=== PATIENT | female | born 1945 | race Caucasian/White ===

== ENCOUNTER → 2023-11-18 08:32 | Outpatient (REF) | payer OTHER, SELFPAY ==
[2023-11-18 09:03] VITALS: BP 140/66; BP_SYST 61
[2023-11-18] MEDS: VANCOCIN 200 IV (09:46)
[2023-11-18 11:10] VITALS: BP 140/52
== END ==
LOC: RADI 08:32
PROVIDERS: ATTENDING PHYSICIAN Internal Medicine Hematology & Oncology; FAMILY PHYSICIAN Family Medicine
DX: C50.211 Malignant neoplasm of upper-inner quadrant of right female breast (principal)
CPT/HCPCS: 36561; 76937; 77001; 99152; 99153; C1788

== ENCOUNTER → 2023-11-24 11:16 | Outpatient (REF) | payer OTHER, SELFPAY ==
[2023-11-24 11:46] LABS: % Basophils 0.4 % (0-2); % Eosinophils 2.4 % (0-6); % Immature Granulocytes 0.2 % (0-0.5); % Lymphocytes 22.1 % (20.5-51.1); % Monocytes 7.5 % (1.7-9.3); % Neutrophils 67.4 % (42.2-75.2); Absolute Eosinophils 0.2 10^3/uL (0-0.7); Absolute Monocytes 0.7 10^3/uL (0.1-0.6); Absolute Neutrophils 6.1 10^3/uL (1.4-6.5); Hematocrit 37.6 % (37.0-47.0); Hemoglobin 12.5 g/dL (12.0-16.0); Mean Corp Hgb Conc. 33.2 g/dL (33.0-37.0); Mean Corpuscular Hgb 28.5 pg (27.0-31.0); Mean Corpuscular Volume 85.8 fL (81.0-99.0); Mean Platelet Volume 10.1 fL (7.4-10.4); Nucleated Red Blood Cells % 0 %; Platelet Count 170 10^3/uL (130-400); Red Blood Cell Count 4.38 10^6/uL (4.20-5.40); Red Cell Dist. Width 13.4 % (11.5-14.5); White Blood Cell Count 9.1 10^3/uL (4.8-10.8)
[2023-11-24 12:02] LABS: ALT (SGPT) 19 U/L (0-35); AST (SGOT) 29 U/L (14-36); Albumin 3.9 g/dl (3.5-5.0); Alkaline Phosphatase 119 U/L (38-126); Blood Urea Nitrogen 16 mg/dl (7-17); Calcium 10.3 mg/dl (8.4-10.2); Carbon Dioxide 32 mmol/L (22-30); Chloride 101 mmol/L (98-107); Glucose 117 mg/dl (70-99); Potassium 3.4 mmol/L (3.5-5.1); Sodium 138 mmol/L (135-145); Total Protein 6.7 g/dl (6.3-8.2); eGFR > 60.00
== END ==
LOC: REG 11:16
PROVIDERS: ATTENDING PHYSICIAN Internal Medicine Hematology & Oncology; FAMILY PHYSICIAN Family Medicine
DX: C50.211 Malignant neoplasm of upper-inner quadrant of right female breast (principal); C34.2 Malignant neoplasm of middle lobe, bronchus or lung; D37.8 Neoplasm of uncertain behavior of other specified digestive organs; C78.02 Secondary malignant neoplasm of left lung; C78.01 Secondary malignant neoplasm of right lung; C25.1 Malignant neoplasm of body of pancreas
CPT/HCPCS: 36415; 80053; 85025

== ENCOUNTER → 2023-12-19 14:42 | Outpatient (REF) | payer OTHER, SELFPAY ==
[2023-12-19 09:01] LABS: % Basophils 0.6 % (0-2); % Immature Granulocytes 0.3 % (0-0.5); % Lymphocytes 20.2 % (20.5-51.1); % Monocytes 2.1 % (1.7-9.3); % Neutrophils 76.8 % (42.2-75.2); Absolute Lymphocytes 0.7 10^3/uL (1.2-3.4); Absolute Monocytes 0.1 10^3/uL (0.1-0.6); Absolute Neutrophils 2.5 10^3/uL (1.4-6.5); Hematocrit 28.5 % (37.0-47.0); Hemoglobin 9.9 g/dL (12.0-16.0); Mean Corp Hgb Conc. 34.7 g/dL (33.0-37.0); Mean Corpuscular Hgb 28.8 pg (27.0-31.0); Mean Corpuscular Volume 82.8 fL (81.0-99.0); Mean Platelet Volume 11.1 fL (7.4-10.4); Nucleated Red Blood Cells % 0 %; Platelet Count 122 10^3/uL (130-400); Red Blood Cell Count 3.44 10^6/uL (4.20-5.40); Red Cell Dist. Width 14.2 % (11.5-14.5); White Blood Cell Count 3.3 10^3/uL (4.8-10.8)
== END ==
LOC: OIDL 14:42
PROVIDERS: ATTENDING PHYSICIAN Internal Medicine Hematology & Oncology
DX: C50.211 Malignant neoplasm of upper-inner quadrant of right female breast (principal); C34.2 Malignant neoplasm of middle lobe, bronchus or lung
CPT/HCPCS: 85025

== ENCOUNTER → 2024-01-09 15:47 | Outpatient (REF) | payer OTHER, SELFPAY ==
[2024-01-09 10:13] LABS: Hematocrit 27.2 % (37.0-47.0); Hemoglobin 9.1 g/dL (12.0-16.0); Mean Corp Hgb Conc. 33.5 g/dL (33.0-37.0); Mean Corpuscular Hgb 29.3 pg (27.0-31.0); Mean Corpuscular Volume 87.5 fL (81.0-99.0); Mean Platelet Volume 9.7 fL (7.4-10.4); Platelet Count 179 10^3/uL (130-400); Red Blood Cell Count 3.11 10^6/uL (4.20-5.40); Red Cell Dist. Width 17.6 % (11.5-14.5); White Blood Cell Count 2.4 10^3/uL (4.8-10.8)
[2024-01-09 10:32] LABS: ALT (SGPT) 42 U/L (0-35); AST (SGOT) 42 U/L (14-36); Albumin 3.5 g/dl (3.5-5.0); Alkaline Phosphatase 109 U/L (38-126); Blood Urea Nitrogen 12 mg/dl (7-17); Calcium 9.8 mg/dl (8.4-10.2); Carbon Dioxide 30 mmol/L (22-30); Chloride 101 mmol/L (98-107); Glucose 130 mg/dl (70-99); Potassium 2.8 mmol/L (3.5-5.1); Sodium 136 mmol/L (135-145); Total Bilirubin 1.4 mg/dl (0.2-1.3); Total Protein 5.8 g/dl (6.3-8.2); eGFR > 60.00
[2024-01-09 10:51] LABS: Absolute Neutrophils -Man Diff 0.8 10^3/uL (1.4-6.5); Band Neutrophils 1 % (0-3); Lymphocytes 41 % (20-51); Segmented Neutrophils 35 % (42-75)
[2024-01-09 10:52] LABS: Eosinophils 5 % (0-6); Monocytes 18 % (2-9); Normal RBC Morphology Yes; Platelets Checked Yes; Total Cells Counted 100
== END ==
LOC: OIDL 15:47
PROVIDERS: ATTENDING PHYSICIAN Internal Medicine Hematology & Oncology
DX: C50.211 Malignant neoplasm of upper-inner quadrant of right female breast (principal)
CPT/HCPCS: 80053; 85025

== ENCOUNTER → 2024-01-16 09:19 | Outpatient (REF) | payer OTHER, SELFPAY ==
[2024-01-16 09:39] LABS: % Basophils 1.1 % (0-2); % Eosinophils 1.1 % (0-6); % Immature Granulocytes 1.1 % (0-0.5); % Lymphocytes 24.2 % (20.5-51.1); % Monocytes 7.3 % (1.7-9.3); % Neutrophils 65.2 % (42.2-75.2); Absolute Lymphocytes 0.7 10^3/uL (1.2-3.4); Absolute Monocytes 0.2 10^3/uL (0.1-0.6); Absolute Neutrophils 1.8 10^3/uL (1.4-6.5); Hematocrit 26.3 % (37.0-47.0); Hemoglobin 8.7 g/dL (12.0-16.0); Mean Corp Hgb Conc. 33.1 g/dL (33.0-37.0); Mean Corpuscular Hgb 28.9 pg (27.0-31.0); Mean Corpuscular Volume 87.4 fL (81.0-99.0); Mean Platelet Volume 10.6 fL (7.4-10.4); Nucleated Red Blood Cells % 0 %; Platelet Count 128 10^3/uL (130-400); Red Blood Cell Count 3.01 10^6/uL (4.20-5.40); Red Cell Dist. Width 16.9 % (11.5-14.5); White Blood Cell Count 2.7 10^3/uL (4.8-10.8)
[2024-01-16 09:54] LABS: ALT (SGPT) 44 U/L (0-35); AST (SGOT) 37 U/L (14-36); Albumin 3.3 g/dl (3.5-5.0); Alkaline Phosphatase 104 U/L (38-126); Blood Urea Nitrogen 9 mg/dl (7-17); Calcium 9.9 mg/dl (8.4-10.2); Carbon Dioxide 31 mmol/L (22-30); Chloride 99 mmol/L (98-107); Glucose 118 mg/dl (70-99); Potassium 3.1 mmol/L (3.5-5.1); Sodium 134 mmol/L (135-145); Total Bilirubin 1.4 mg/dl (0.2-1.3); Total Protein 5.6 g/dl (6.3-8.2); eGFR > 60.00
[2024-01-19 10:39] LABS: Iron 51 ug/dl (37-170)
[2024-01-19 10:51] LABS: Percent Saturation 21 % (20-50); Total Iron Binding Capacity 232 ug/dl (265-497)
== END ==
LOC: OIDL 09:19
PROVIDERS: ATTENDING PHYSICIAN Nurse Practitioner Adult Health
DX: C50.211 Malignant neoplasm of upper-inner quadrant of right female breast (principal); C34.2 Malignant neoplasm of middle lobe, bronchus or lung; D37.8 Neoplasm of uncertain behavior of other specified digestive organs; C78.02 Secondary malignant neoplasm of left lung
CPT/HCPCS: 80053; 82728; 83540; 83550; 85025

== ENCOUNTER → 2024-01-23 15:36 | Outpatient (REF) | payer OTHER, SELFPAY ==
[2024-01-23 11:07] LABS: ALT (SGPT) 93 U/L (0-35); AST (SGOT) 88 U/L (14-36); Albumin 3.3 g/dl (3.5-5.0); Alkaline Phosphatase 393 U/L (38-126); Blood Urea Nitrogen 9 mg/dl (7-17); Calcium 9.7 mg/dl (8.4-10.2); Carbon Dioxide 31 mmol/L (22-30); Chloride 95 mmol/L (98-107); Glucose 127 mg/dl (70-99); Potassium 2.8 mmol/L (3.5-5.1); Sodium 133 mmol/L (135-145); Total Bilirubin 2.1 mg/dl (0.2-1.3); Total Protein 5.7 g/dl (6.3-8.2); eGFR > 60.00
[2024-01-23 11:09] LABS: % Basophils 1.4 % (0-2); % Eosinophils 0.2 % (0-6); % Immature Granulocytes 6.7 % (0-0.5); % Lymphocytes 19.5 % (20.5-51.1); % Monocytes 11.8 % (1.7-9.3); % Neutrophils 60.4 % (42.2-75.2); Absolute Basophils 0.1 10^3/uL (0-0.2); Absolute Immature Granulocytes 0.3 10^3/uL (0-0.05); Absolute Lymphocytes 0.8 10^3/uL (1.2-3.4); Absolute Monocytes 0.5 10^3/uL (0.1-0.6); Absolute Neutrophils 2.5 10^3/uL (1.4-6.5); Hemoglobin 8.6 g/dL (12.0-16.0); Mean Corp Hgb Conc. 34.4 g/dL (33.0-37.0); Mean Corpuscular Hgb 29.7 pg (27.0-31.0); Mean Corpuscular Volume 86.2 fL (81.0-99.0); Nucleated Red Blood Cells % 2.2 %; Red Cell Dist. Width 16.8 % (11.5-14.5); White Blood Cell Count 4.2 10^3/uL (4.8-10.8)
[2024-01-23 11:49] LABS: Mean Platelet Volume 10.9 fL (7.4-10.4); Platelet Count 86 10^3/uL (130-400)
== END ==
LOC: OIDL 15:36
PROVIDERS: ATTENDING PHYSICIAN Internal Medicine Hematology & Oncology
DX: C50.211 Malignant neoplasm of upper-inner quadrant of right female breast (principal)
CPT/HCPCS: 80053; 85025

== ENCOUNTER → 2024-02-03 14:31 | Outpatient (REF) | payer OTHER, SELFPAY | LOC: RAD 14:31 | PROVIDERS: ATTENDING PHYSICIAN Internal Medicine Hematology & Oncology; FAMILY PHYSICIAN Family Medicine | DX: C50.211 Malignant neoplasm of upper-inner quadrant of right female breast (principal); C34.2 Malignant neoplasm of middle lobe, bronchus or lung; D37.8 Neoplasm of uncertain behavior of other specified digestive organs; C78.02 Secondary malignant neoplasm of left lung; C78.01 Secondary malignant neoplasm of right lung; C25.1 Malignant neoplasm of body of pancreas | CPT/HCPCS: 93970 ==

== ENCOUNTER → 2024-02-08 13:26 | Outpatient (REF) | payer OTHER, SELFPAY | LOC: RAD 13:26 | PROVIDERS: ATTENDING PHYSICIAN Internal Medicine Hematology & Oncology; FAMILY PHYSICIAN Family Medicine | DX: C50.211 Malignant neoplasm of upper-inner quadrant of right female breast (principal); C34.2 Malignant neoplasm of middle lobe, bronchus or lung; D37.8 Neoplasm of uncertain behavior of other specified digestive organs; C78.02 Secondary malignant neoplasm of left lung; C78.01 Secondary malignant neoplasm of right lung; C25.1 Malignant neoplasm of body of pancreas | CPT/HCPCS: 71260; 74177; Q9967 ==

== ENCOUNTER → 2024-02-16 12:53 | Outpatient (REF) | payer OTHER, SELFPAY | LOC: RAD 12:53 | PROVIDERS: ATTENDING PHYSICIAN Internal Medicine Hematology & Oncology; FAMILY PHYSICIAN Family Medicine; OTHER PHYSICIAN Internal Medicine Critical Care Medicine; OTHER PHYSICIAN Podiatrist Foot & Ankle Surgery | DX: C50.211 Malignant neoplasm of upper-inner quadrant of right female breast (principal); C34.2 Malignant neoplasm of middle lobe, bronchus or lung; D37.8 Neoplasm of uncertain behavior of other specified digestive organs; C78.02 Secondary malignant neoplasm of left lung; C78.01 Secondary malignant neoplasm of right lung; C25.1 Malignant neoplasm of body of pancreas; M79.606 Pain in leg, unspecified | CPT/HCPCS: 93971 ==

== ENCOUNTER 2024-03-28 17:14 | Inpatient (IN) | payer OTHER, SELFPAY ==
[2024-03-28] VITALS (9 sets, daily range): BP systolic 131–163; BP diastolic 61–93; BMI 26.3
--- NOTE | 2024-03-28 11:12 | ED.GENMED ---
History of Present Illness
General
Chief Complaint: Fall
Source: patient and ambulance crew
Exam Limitations: none
Time Seen by Provider: 03/28/24 10:44
Nursing documentation reviewed up to this point in time: agreed with
Travel History
Have you had any contact with someone who has COVID-19?: No
Do you have any symptoms of coronavirus? Fever > 100 degrees, chills, cough, shortness of breath, sore throat, loss of taste or smell, muscle aches, or headache?: No
History of Present Illness
History of Present Illness:
Patient presents to ED secondary to left ankle pain with swelling, when she lost balance and fell down at home this morning. Patient who has been utilizing walker secondary to lower extremity weakness from deconditioning, reports losing balance and
falling to her right side. Patient recalls hitting the door with lesser body and then subsequently falling backwards. Patient denies loss of consciousness. Denies head injury. Denies neck pain. Denies loss of sensation or weakness. Patient
does take Eliquis chronically.
Past History
Past History
ED Past Medical History: HTN and Hypercholesterolemia
ED Past Surgical History: Gynecological (History of a D&C)
Social History
Personal:
Living: with family
Employment: Employed
Review of Systems
Review of Systems
Allergies reviewed?: Yes
All Other Systems: ROS reviewed and negative except as documented in HPI and ROS
Constitutional: Reports no symptoms
Musculoskeletal: Reports other (Ankle pain with swelling)
Skin: Reports no symptoms
Neurological: Reports no symptoms
Phy Exam
Physical Exam
Physical Exam:
Physical Exam
General: mild painful distress, not acutely ill. afebrile
Head: nc/at. eomi
Neck: supple. normal range of motion
Lungs: cta. chest wall nontender to palpation.
Abdomen: normal bowel sounds. not tender.
Neuro: alert and oriented. no focal neurological deficits
Skin: no rash
Psychiatric: well kept. interactive and cooperative
Extremities: left ankle - lateral malleolus tenderness with ecchymosis and swelling. no obvious deformity noted.
Course
Orders/Labs/Results
Orders:
Orders
03/28/24 11:11
Acetaminophen [Tylenol] 650 mg PO NOW STA
CR Ankle - Left Min 3 Views Urgent
Comment:
Reason For Exam: trauma with lateral swelling
03/28/24 13:41
Electrocardiogram (*1) Urgent
Reason for Study: PreOp
EKG- Treatment ONCE
03/28/24 13:43
IV Insert/Care/Rem.- Treatment PRN
03/28/24 13:56
Type+Screen Urgent
Basic Metabolic Panel Urgent
Complete Blood Count/No Diff Urgent
Magnesium Urgent
PTT Urgent
Prothrombin Time Urgent
03/28/24 15:16
Magnesium Sulfate 4 Gram/100Ml [Magnesium Sulfate] 4 gram in 100 ml IV NOW
03/28/24 15:23
Magnesium Sulfate 1 grams 0.9% Sodium Chloride 100 ml [Nss] 100 ml IV NOW
Potassium Chloride [KCl] 40 meq PO NOW STA
03/28/24 16:40
Admit/Transfer Patient As Directed
Co-Sign Provider:
Level of Care: Inpatient admission
Assign to:: Medical/Surgical
Physician / Group: Hospitalist
Transfer to: Medical/Surgical
Diagnosis: Ankle fracture
Patient Condition: Fair
Reason for Hospitalization: Ankle fracture
Expected length of stay greater than two midnights?: Yes
ELOS- Estimated Length of Stay in days: 4
I certify the patient meets the requirements for IP care: Yes
Reason for Overnight Stay: Other
Other Reason for Overnight Stay: Potential surgery
03/28/24 16:45
ORTHOPEDIC CONSULT Routine
Consulting Provider: Jose Mccormick
Was physician already notified: Yes
Reason for consult: Ankle fracture
03/28/24 16:51
Code Status As Directed
Resuscitation Status: Full Code
Reached after discussion with pt or family/Healthcare POA: Yes
03/28/24 19:29
cyclosporine [Cequa] See Dose Instructions BOTH EYES Q12H
03/28/24 20:00
loteprednol etabonate [Inveltys] See Dose Instructions BOTH EYES BID
03/28/24 22:00
Artificial Tears (Pf) [Refresh Eye Drops (Pf)] 1 drops BOTH EYES 5/D
Diphenhydramine [Benadryl] 50 mg PO HS
03/29/24 06:00
B12 [Vitamin B12] IN AM
CBC/With Diff [Complete Blood Count/With Diff] IN AM
CMP [Comprehensive Metabolic Panel] IN AM
Folate IN AM
Magnesium IN AM
TSH Reflex To Free T4 IN AM
03/29/24 08:00
Atorvastatin [Lipitor] 10 mg PO DAILY
Cholecalciferol (Vitamin D3) [VITAMIN D3 (cholecalciferol)] 25 mcg PO DAILY
Docusate Sodium [Colace] 100 mg PO DAILY
Hydrochlorothiazide [Oretic] 25 mg PO DAILY
Potassium Chloride [KCl] 20 meq PO DAILY
Abnormal Lab Results
03/28/24
13:56
RBC 4.03 L 10^6/uL
(4.20-5.40)
Hct 35.6 L %
(37.0-47.0)
PT 15.4 H Sec
(11.4-14.6)
Potassium 2.9 L mmol/L
(3.5-5.1)
Glucose 120 H mg/dl
(70-99)
Calcium 10.7 H mg/dl
(8.4-10.2)
Magnesium 0.9 L* mg/dl
(1.6-2.3)
03/28/24 13:56
03/28/24 13:56
Vital Signs
Initial and Last Documented VS:
Initial Vital Signs
Temp Pulse Resp BP Pulse Ox
97.9 F 95 17 146/73 98
03/28/24 10:48 03/28/24 10:48 03/28/24 10:48 03/28/24 10:48 03/28/24 10:48
Last Documented Vital Signs
Temp Pulse Resp BP Pulse Ox
97.6 F 97 20 163/93 97
03/28/24 20:01 03/28/24 20:01 03/28/24 20:01 03/28/24 20:01 03/28/24 20:01
MDM/Problems Addressed
MDM/Problems Addressed:
X-ray reveals bimalleolar fracture. Posterior splint applied in ED.
Discussed with orthopaedic surgery () - tentative plan for OR tomorrow.
Will admit to hospitalist service, due to complex medical history.
Hypomagnesemia and hypokalemia noted on blood work. Will replete.
*EKG
Interpreted by ED Provider?: Yes
EKG Intrepretation Date: 03/28/24
Heart Rate: 84
Rate: normal
Rhythm: sinus
Adrian: normal axis
Interval: normal interval
QRS Pattern: normal QRS
*Critical Care Note
Total Time (30-74mins, 75-104mins- exclusive of procedures): Not Applicable
ED Attending Note
-
Portions of this chart may have been created with voice recognition software.� Occasional wrong word or��sound alike� substitutions may have occurred due to the inherent limitations of voice recognition software.
Discharge Plan
Departure
Patient Disposition: Admit
Date of Disposition: 03/28/24
Time of Disposition: 14:11
Admit to: Med/Surg
Presentation/result/management discussed w/ accepting MD/DO: Hospitalist
Discharge Problem:
Bimalleolar ankle fracture, Hypokalemia, Hypomagnesemia
Interventions
Interventions:
*Risk Screen - Suicide Last Done: 03/28/24 10:57
*General Assessment Last Done: 03/28/24 10:57
*Neglect/Abuse Screening Last Done: 03/28/24 10:57
ED- Fall Risk Assessment Last Done: 03/28/24 10:57
*ED COVID-19 Vaccine History Last Done: 03/28/24 10:57
*Nursing Disposition Last Done: 03/28/24 18:02
ED-Musculoskeletal Assessment Last Done: 03/28/24 10:57
ED- Neurological Assessment Last Done: 03/28/24 10:57
ED-Skin Assessment Last Done: 03/28/24 12:19
Discharge Date and Time
Discharge Date/Time: 03/28/24 19:26
[2024-03-28] MEDS: TYLENOL 650 MG PO (11:31)
[2024-03-28 14:02] LABS: Hematocrit 35.6 % (37.0-47.0); Hemoglobin 12.3 g/dL (12.0-16.0); Mean Corp Hgb Conc. 34.6 g/dL (33.0-37.0); Mean Corpuscular Hgb 30.5 pg (27.0-31.0); Mean Corpuscular Volume 88.3 fL (81.0-99.0); Mean Platelet Volume 9.8 fL (7.4-10.4); Platelet Count 181 10^3/uL (130-400); Red Blood Cell Count 4.03 10^6/uL (4.20-5.40); Red Cell Dist. Width 12.7 % (11.5-14.5); White Blood Cell Count 10.4 10^3/uL (4.8-10.8)
[2024-03-28 14:16] LABS: INR 1.22; PT 15.4 Sec (11.4-14.6)
[2024-03-28 14:17] LABS: APTT 26.1 Sec (23.4-35.0)
[2024-03-28 14:23] LABS: Blood Urea Nitrogen 14 mg/dl (7-17); Calcium 10.7 mg/dl (8.4-10.2); Carbon Dioxide 27 mmol/L (22-30); Chloride 103 mmol/L (98-107); Glucose 120 mg/dl (70-99); Magnesium 0.9 mg/dl (1.6-2.3); Potassium 2.9 mmol/L (3.5-5.1); Sodium 137 mmol/L (135-145); eGFR > 60.00
--- NOTE | 2024-03-28 15:06 | HPS.HSE ---
Addendum entered and electronically signed by Svetlana Goldman MD 03/28/24 19:05:
Patient seen and examined independently--agree with admission note set forth by Dr. Davila
GENERAL: well developed, well nourished, in no apparent distress
HEENT: NC/AT
HEART: regular rate and rhythm, +S1, +S2
LUNGS : clear to auscultation bilaterally
ABDOM: soft, nontender, nondistended, + bowel sounds
EXT: no cyanosis, clubbing, or edema-- left leg in splint placed by ED
NEUROLOGIC: grossly intact
Mechanical fall (no prodromes of dizziness, etc) resulting in acute left Ankle fracture--Bimalleolar left ankle fracture confirmed on x-ray--reduced in ER and put in splint--ADMIT--consult orthopedics--possible surgery 03/29--Pain control-- PT/OT
after surgery.
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 Walker.
Essential hypertension--Hold hydrochlorothiazide in perioperative period so as not to precipitate hyponatremia
Hypercholesteremia--Continue atorvastatin.
Hypomagnesemia-- likely due to chemo/poor oral intake--Repeated--Follow with repeat lab
DVT prophylaxis--Hold Eliquis for tomorrow.
CODE STATUS: Full code
Original Note:
Family Physician
-
Family Physician: Dr. Dionne Katz MD
Chief Complaint
-
Left leg pain and swelling
History of Present Illness
Patient is a 78-year-old female with past medical history of hypertension, DVT (on Eliquis), multiple lung nodules, pancreatic cancer, right breast cancer(on chemotherapy), chronic neuropathy who presented to ED due to fall at home and left ankle
pain with swelling. Patient reports that his right leg is weaker than the left, and ambulates at home with walker. She stated that she was walking with a walker and behind her when she tripped and fell because her leg was stuck on the rug.
She reports no loss of consciousness, and no head trauma. Patient reports that her neuropathy came as a result of her chemotherapy which was stopped about 5 weeks ago due to blurry vision. However, she still feels residual weakness on both hands
and feet. She denies neck pain, chest pain, shortness of breath, palpitations, dizziness, abdominal pain, or urinary symptoms. Ankle x-ray done at the ED reports lateral and medial malleolar fractures with mild tibiotalar subluxation. Patient was
admitted to [facility] for potential surgery tomorrow.
Medical History
Past Medical History
Past Medical History: Reports Cancer (Pancreatic cancer breast cancer), HTN, Hypercholesterolemia and Other (Osteoarthritis)
Additional Past Medical History:
DVT, colon polyps
Past Surgical History: Reports None
Additional Past Surgical History:
Right lumpectomy, right shoulder replacement
Social History
Tobacco: Former Smoker
Alcohol: Occasional
Drug: None
Personal:
Living: With Family
Employment: Retired
Family History
Family History: Not pertinent
Allergies / Home Medications
Allergies reflects when Allergies were last updated in [facility].
Home Medications with original date entered in [facility]
Allergy/Medication List:
Allergies
Allergy/AdvReac Type Severity Reaction Status Date / Time
Penicillins Allergy Anaphylaxis-THROAT Verified 03/28/24 10:54
CLOSES
Review of Systems
-
History Source: Patient
A 12 point ROS was completed and negative except as noted: Yes
Constitutional: Reports No Symptoms; Denies Fever
EENT: Reports No Symptoms; Denies Sore Throat or Mouth Swelling
Respiratory: Reports No Symptoms; Denies Cough or Trouble Breathing
Cardiac: Reports No Symptoms; Denies Chest Pain, Palpitations or Syncope
Abdomen/GI: Reports No Symptoms
: Reports No Symptoms
Musculoskeletal: Reports Joint Pain and Other (Ankle swelling)
Skin: Reports No Symptoms
Neurological: Reports Weakness and Other (Neuropathy); Denies Dizzy or Headache
Endocrine: Reports No Symptoms
Psych: Reports Calm
Physical Exam
Vital Signs
Vital Signs
Temp Pulse Resp BP Pulse Ox
97.9 F 84 15 137/70 98
03/28/24 10:48 03/28/24 14:19 03/28/24 14:19 03/28/24 14:19 03/28/24 14:19
Physical Exam
General: No Apparent Distress, Comfortable and Conversant
HEENT: Moist mucous membranes and Atraumatic
Respiratory: Clear; No Wheezes or Crackles
Cardiac: S1/S2 and Regular Rhythm
GI: Soft, Non Tender, Non Distended and Normal Bowel Sounds
Musculoskeletal: Other (Left ankle swelling)
Neuro: Awake, Alert, Oriented and AO x 3
Psych: Calm
Laboratory Results
-
03/28/24 13:56
03/28/24 13:56
Laboratory Results
PT 15.4 Sec (11.4-14.6) H 03/28/24 13:56
INR 1.22 03/28/24 13:56
APTT 26.1 Sec (23.4-35.0) 03/28/24 13:56
Data Reviewed
-
Diagnostic Radiology: Image Personally Visualized and interpreted, Report Reviewed by me and Discussed with Physician
Lab Data: Labs Reviewed by me and Discussed with Physician
Old Records: Reviewed
Impression/Plan
-
Assessment: This is a 78-year-old female with past medical history of hypertension, DVT (on Eliquis), multiple lung nodules, pancreatic cancer, right breast cancer(on chemotherapy), chronic neuropathy who presented to ED due to fall at home and
left ankle pain with swelling. Imaging reports bimalleolar fractures with mild tibiotalar subluxation.
Condition prior to admission:
Essential hypertension
Hypercholesterolemia
Medication induced neuropathy
Right lumpectomy
Right shoulder replacement
Impression:
Ankle fracture
PLAN:
Ankle fracture
-Bimalleolar left ankle fracture confirmed on x-ray.
-Possible tabetic surgery tomorrow.
-Orthopedic consult.
-Pain control
-Consider PT/OT after surgery.
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
-Most likely chemotherapy induced.
-Check TSH, B12, folate.
-Chemotherapy stopped 5 weeks ago per patient.
-Oncology consult, patient follows with Dr. Walker.
Essential hypertension
-Continue hydrochlorothiazide.
Hypercholesteremia
-Continue atorvastatin.
Hypomagnesemia
-Repeated.
-Follow with repeat lab
DVT prophylaxis
-Hold Eliquis for tomorrow.
CODE STATUS: Full code
[2024-03-28] MEDS: KCL 40 MEQ PO (15:51)
[2024-03-28] MEDS: MAGNESIUM SULFATE 100 IV (15:51)
--- NOTE | 2024-03-28 20:00 | PTCARENOTE ---
Pt arrived to unit from ED and was a pullover assist from stretcher to bed. Pt is AAOx3 and reporting 5/10 pain in her left ankle. Pt oriented to room, call marion within reach. BP on admission was 163/93, HR 97. Pt is afebrile and 97% on room air.
[2024-03-28] MEDS: TYLENOL 1000 MG PO (21:46)
[2024-03-28] MEDS: REFRESH EYE DROPS (PF) 1 DROPS BOTH EYES (21:46)
[2024-03-28] MEDS: BENADRYL 50 MG PO (21:46)
[2024-03-29] VITALS (9 sets, daily range): BP systolic 125–149; BP diastolic 61–82
[2024-03-29 06:02] LABS: % Basophils 0.6 % (0-2); % Eosinophils 4.2 % (0-6); % Immature Granulocytes 0.4 % (0-0.5); % Lymphocytes 20.3 % (20.5-51.1); % Monocytes 7.5 % (1.7-9.3); Absolute Basophils 0.1 10^3/uL (0-0.2); Absolute Eosinophils 0.5 10^3/uL (0-0.7); Absolute Immature Granulocytes 0.1 10^3/uL (0-0.05); Absolute Lymphocytes 2.3 10^3/uL (1.2-3.4); Absolute Monocytes 0.8 10^3/uL (0.1-0.6); Absolute Neutrophils 7.5 10^3/uL (1.4-6.5); Hematocrit 34.3 % (37.0-47.0); Hemoglobin 11.6 g/dL (12.0-16.0); Mean Corp Hgb Conc. 33.8 g/dL (33.0-37.0); Mean Corpuscular Hgb 30.3 pg (27.0-31.0); Mean Corpuscular Volume 89.6 fL (81.0-99.0); Nucleated Red Blood Cells % 0 %; Platelet Count 192 10^3/uL (130-400); Red Blood Cell Count 3.83 10^6/uL (4.20-5.40); Red Cell Dist. Width 13.2 % (11.5-14.5); White Blood Cell Count 11.1 10^3/uL (4.8-10.8)
[2024-03-29 06:35] LABS: ALT (SGPT) 30 U/L (0-35); AST (SGOT) 39 U/L (14-36); Albumin 3.1 g/dl (3.5-5.0); Alkaline Phosphatase 117 U/L (38-126); Blood Urea Nitrogen 16 mg/dl (7-17); Calcium 10.2 mg/dl (8.4-10.2); Carbon Dioxide 27 mmol/L (22-30); Chloride 105 mmol/L (98-107); Estimated Creatinine Clearance 52 ml/min; Glucose 123 mg/dl (70-99); Magnesium 1.8 mg/dl (1.6-2.3); Potassium 3.5 mmol/L (3.5-5.1); Sodium 138 mmol/L (135-145); Total Protein 5.7 g/dl (6.3-8.2); eGFR > 60.00
[2024-03-29 07:01] LABS: TSH Reflex To Free T4 1.67 uIU/ml (0.47-4.68)
--- NOTE | 2024-03-29 07:31 | W.PN.UPDATE ---
Update Note
Progress Note Update
Full orthopedic consult dictated:
Dx: Left bimalleolar fracture
Plan: Patient is going to require open reduction internal fixation left ankle bimalleolar fracture. Dr. Mccormick is going to try to do later today but OR is busy. She will remain n.p.o., continue with ice and elevation to control swelling
and pain, n.p.o. and antibiotics ordered.
[2024-03-29 07:37] LABS: Folate 6.3 ng/ml (2.76-20); Vitamin B12 654 pg/ml (239-931)
--- NOTE | 2024-03-29 08:10 | W.PN.HOSP.TC ---
Addendum entered and electronically signed by Svetlana Goldman MD 03/29/24 17:17:
Patient seen and examined independently--agree with admission note set forth by Dr. Davila
GENERAL: well developed, well nourished, in no apparent distress
HEENT: NC/AT
HEART: regular rate and rhythm, +S1, +S2
LUNGS : clear to auscultation bilaterally
ABDOM: soft, nontender, nondistended, + bowel sounds
EXT: no cyanosis, clubbing, or edema-- left leg in splint placed by ED
NEUROLOGIC: grossly intact
Mechanical fall (no prodromes of dizziness, etc) resulting in acute left Ankle fracture--Bimalleolar left ankle fracture confirmed on x-ray--reduced in ER and put in splint--apprec orthopedics, for OR 03/29--Pain control-- PT/OT after surgery.
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 Walker.
Essential hypertension--Hold hydrochlorothiazide in perioperative period so as not to precipitate hyponatremia
Hypercholesteremia--Continue atorvastatin.
Hypomagnesemia-- likely due to chemo/poor oral intake--Repeated--Follow with repeat lab
DVT prophylaxis--Hold Eliquis for tomorrow.
CODE STATUS: Full code
Original Note:
Today's Communication/Plan
-
Continue Eliquis
Left leg surgery tentatively today
Pain control
Monitor CBC
Assessment / Plan
Assessment / Plan
Assessment: This is a 78-year-old female with past medical history of hypertension, DVT (on Eliquis), multiple lung nodules, pancreatic cancer, right breast cancer(on chemotherapy), chronic neuropathy who presented to ED due to fall at home and
left ankle pain with swelling. Imaging reports bimalleolar fractures with mild tibiotalar subluxation.
Condition prior to admission:
Essential hypertension
Hypercholesterolemia
Medication induced neuropathy
Right lumpectomy
Right shoulder replacement
Impression:
Ankle fracture
Splinted
PLAN:
Ankle fracture
-Bimalleolar left ankle fracture confirmed on x-ray.
-Splinted in the ED.
-Tentative surgery later today.
-Continue Eliquis per orthopedics.
-Orthopedic following.
-Pain control.
-Consider PT/OT after surgery.
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 Now presenting with atypical neuropathy of LE > UE and vision loss due to chemotherapy.
-TSH, B12, folate WNL.
-Chemotherapy stopped 5 weeks ago per patient.
-Oncology consult, patient follows with Dr. Walker.
Essential hypertension
-Continue hydrochlorothiazide.
Mild anemia with mild leukocytosis
-Hb 11.6, WBC 11.1 with normal platelet count
-Leukocytosis likely reactive.
-Monitor CBC
Hypercholesteremia
-Continue atorvastatin.
Hypomagnesemia
-Repeated.
-Follow with repeat lab
DVT prophylaxis
-Eliquis
CODE STATUS: Full code
Anticipated Discharge: 24 - 48 hours
Subjective/Interval History
-
Date of Service: March 29, 2024
Objective Data
-
Labs:
Laboratory Results
03/29/24
05:35
WBC 11.1 H
Hgb 11.6 L
Hct 34.3 L
Plt Count 192
Sodium 138
Potassium 3.5
Chloride 105
Carbon Dioxide 27
BUN 16
Creatinine 0.7
Glucose 123 H
Calcium 10.2
Total Bilirubin 1.0
AST 39 H
ALT 30
Alkaline Phosphatase 117
Vital Signs:
Vital Signs
Temp Pulse Resp BP Pulse Ox
98.2 F 85 17 132/78 96
03/29/24 08:01 03/29/24 08:01 03/29/24 08:01 03/29/24 08:01 03/29/24 08:01
I&O
03/28/24 03/29/24 03/30/24
06:59 06:59 06:59
Intake Total 480 / 480
Output Total 300 / 300
Balance 180 / 180
Review of Systems
-
History Source: Patient
All other systems: Not reviewed unless documented
Constitutional: Reports No Symptoms; Denies Fever or Chills
EENT: Reports No Symptoms Reported
Respiratory: Reports No Symptoms; Denies Cough
Cardiac: Reports No Symptoms; Denies Chest Pain
Abdomen/GI: Reports No Symptoms; Denies Abdominal Pain, Nausea or Vomiting
Genitourinary: Reports No Symptoms
Musculoskeletal: Reports Other (Left bimalleolar ankle fracture)
Skin: Reports No Symptoms
Neuro: Reports Weakness (Right lower extremity> left)
Endocrine: Reports No Symptoms
Physical Exam
-
General: No Apparent Distress, Comfortable and Conversant
HEENT: Normocephalic, Atraumatic and Moist Mucous Membranes
Respiratory: Clear to Auscultation; Negative Wheezes, Crackles or Non Labored Respirations
Cardiac: Regular Rhythm and S1/S2
GI: Soft, Nontender, Nondistended and Normal Bowel Sounds
Musculoskeletal: No Clubbing and Other (Left leg splint); Negative No Edema
Skin: Warm
Neuro: Awake, Alert, Oriented and AO x 3
Psych: Calm
Data Reviewed
-
Diagnostic Radiology: Report Reviewed by me and Discussed with Physician
Labs: Labs Reviewed by me and Discussed with Physician
[2024-03-29] MEDS: VITAMIN D3 (cholecalciferol) 25 MCG PO (08:46)
[2024-03-29] MEDS: LIPITOR 10 MG PO (08:46)
[2024-03-29] MEDS: KCL 20 MEQ PO (08:46)
[2024-03-29] MEDS: COLACE 100 MG PO (08:47)
[2024-03-29] MEDS: REFRESH EYE DROPS (PF) 1 DROPS BOTH EYES ×4 (08:47→21:37)
[2024-03-29] MEDS: ORETIC 25 MG PO (08:47)
--- NOTE | 2024-03-29 10:27 | CON.ONC ---
Impression
Impression
Pancreatic carcinoma with metastases to the lung
Chemotherapy atypical neuropathy with visual loss and decreased strength upper extremity greater than lower
Bimalleolar left ankle fracture
Hypertension
Electrolyte imbalance
History of DVT
Plan
Plan
Apixaban on hold preop
Monitor CBC
CBC with hemoglobin 11.6 g/dL slight reactive leukocytosis and adequate platelets
Reschedule office visit which was due for tomorrow to discuss alternate systemic chemotherapy
Unlikely to be a candidate for chemotherapy agents with neurotoxicity consider liposomal irinotecan (Onivyde)
Will follow
Patient History
History of Present Illness
Patient is a 78-year-old female with past medical history of metastatic pancreatic carcinoma with pulmonary metastases, she has received 2 cycles of gemcitabine and Abraxane but unfortunately suffered multiple toxicities including visual loss and
progressive peripheral neuropathy upper extremity greater than lower with impact on strength. She also has a history of hypertension, DVT (on Eliquis), breast carcinoma, chronic neuropathy who presented to ED due to fall at home and left ankle
pain with swelling. Patient reports that his right leg is weaker than the left, and ambulates at home with walker. She stated that she was walking with a walker and behind her when she tripped and fell because her leg was stuck on the rug.
She reports no loss of consciousness, and no head trauma. She denies neck pain, chest pain, shortness of breath, palpitations, dizziness, abdominal pain, or urinary symptoms. Radiologic imaging with ankle lateral and medial malleolar fractures
with mild tibiotalar subluxation. Anticipate ORIF this afternoon.
Past-Medical/Surgical History
Past Medical History
Past Medical History: Pancreatic cancer metastatic to the lung, breast cancer 2019, HTN, Hypercholesterolemia, postchemotherapy neuropathy,
DVT, colon polyps
Past Surgical History
Right lumpectomy, right shoulder replacement
Social History
Tobacco: Former Smoker
Alcohol: Occasional
Drug: None
Personal:
Living: With Family
Employment: Retired
Patient Medication
�Medication �Instructions �Recorded �Confirmed �Last Taken �Type
atorvastatin 10 mg tablet 10 mg PO DAILY High Cholesterol 01/05/19 03/28/24 03/27/24 History
hydrochlorothiazide 25 mg tablet 25 mg PO DAILY #1 tab 08/20/22 03/28/24 03/27/24 Rx
apixaban 5 mg tablet (Eliquis) 5 mg PO BID Blood Clot 03/28/24 03/28/24 03/27/24 History
Prevention/Tx
carboxymethylcellulose 0.5 1 drp BOTH EYES 5/D Eye Condition 03/28/24 03/28/24 03/27/24 History
%-glycerin 0.9 % eye drops
(Refresh Optive)
cholecalciferol (vitamin D3) 25 25 mcg PO DAILY Supplement 03/28/24 03/28/24 03/27/24 History
mcg (1,000 unit) tablet (Vitamin
D3)
cyclosporine 0.09 % eye drops in a 1 drp BOTH EYES Q12H Eye Condition 03/28/24 03/28/24 03/27/24 History
dropperette (Cequa)
diphenhydramine 25 2 tab PO HS Sleep 03/28/24 03/28/24 03/27/24 History
mg-acetaminophen 500 mg tablet
(Tylenol PM Extra Strength)
docusate sodium 100 mg capsule 100 mg PO DAILY Constipation 03/28/24 03/28/24 03/27/24 History
(Colace)
loteprednol etabonate 1 % eye 1 drp BOTH EYES BID Eye Condition 03/28/24 03/28/24 03/27/24 History
drops,suspension (Inveltys)
potassium chloride 20 mEq 20 meq PO DAILY Electrolyte 03/28/24 03/28/24 03/27/24 History
tablet,extended release Repletion
Active Medications
Generic Name Dose Route Start Last Admin
Trade Name Freq PRN Reason Stop Dose Admin
Acetaminophen 1,000 mg 03/28/24 18:37
Acetaminophen 500 Mg Tablet PO 04/25/24 18:36
Q6HPRN PRN
Left ankle pain
Acetaminophen 1,000 mg 03/28/24 22:00 03/28/24 21:46
Acetaminophen 500 Mg Tablet PO 04/25/24 21:59 1,000 mg
HS DWAYNE Administration
Artificial Tears 1 drops 03/28/24 22:00 03/29/24 08:47
Artificial Tears Pf (Refresh) 10 Drop Droperette BOTH EYES 04/25/24 21:59 1 drops
5/D DWAYNE Administration
Atorvastatin Calcium 10 mg 03/29/24 08:00 03/29/24 08:46
Atorvastatin (Lipitor) 10 Mg Tablet PO 04/26/24 07:59 10 mg
DAILY DWAYNE Administration
Cholecalciferol 25 mcg 03/29/24 08:00 03/29/24 08:46
Cholecalciferol (Vitamin D3) 25 Mcg Tablet (1,000 Units) PO 04/26/24 07:59 25 mcg
DAILY DWAYNE Administration
Diphenhydramine HCl 50 mg 03/28/24 22:00 03/28/24 21:46
Diphenhydramine 50 Mg Capsule PO 04/25/24 21:59 50 mg
HS DWAYNE Administration
Docusate Sodium 100 mg 03/29/24 08:00 03/29/24 08:47
Docusate Sodium 100 Mg Capsule PO 04/26/24 07:59 100 mg
DAILY DWAYNE Administration
Hydrochlorothiazide 25 mg 03/29/24 08:00 03/29/24 08:47
Hydrochlorothiazide 25 Mg Tablet PO 04/26/24 07:59 25 mg
DAILY DWAYNE Administration
Vancomycin HCl 1 gram in 200 mls @ 200 mls/hr 03/29/24 13:00
Vancocin IV 03/29/24 13:59
ONCE ONE
(Cyclosporine [Cequa 0 drop 03/28/24 19:29
] 0.09 % Dropperette BOTH EYES 07/17/24 19:28
) One Drop Both Eyes Q12H DWAYNE
Q12h
Loteprednol 0 drop 03/28/24 20:00
Etabonate [Inveltys] BOTH EYES 04/25/24 19:59
1 % Suspensionone BID DWAYNE
Drop Both Eyes Bid
Potassium Chloride 20 meq 03/29/24 08:00 03/29/24 08:46
Potassium Chloride 20 Meq Extended Release Tablet PO 04/26/24 07:59 20 meq
DAILY DWAYNE Administration
Sodium Chloride 0 flush 03/28/24 19:00
Sodium Chloride 0.9% (Flush) Syringe IV 04/25/24 18:59
PER PROTOCOL DWAYNE
Review of Systems
-
12 point review of systems fails to elicit additional complaints other than those reviewed in the HPI patient with fairly profound upper extremity and neuropathy causing weakness. She denies cervical discomfort.
Physical Exam
-
Physical Exam
General: No Apparent Distress, Comfortable and Conversant
HEENT: Moist mucous membranes and Atraumatic
Respiratory: Clear; No Wheezes or Crackles
Cardiac: S1/S2 and Regular Rhythm
GI: Soft, Non Tender, Non Distended and Normal Bowel Sounds
Musculoskeletal: Other (Left ankle swelling)
Neuro: Awake, Alert, Oriented and AO x 3
Psych: Calm
Labs
Lab Results
WBC 11.1 10^3/uL (4.8-10.8) H 03/29/24 05:35
RBC 3.83 10^6/uL (4.20-5.40) L 03/29/24 05:35
Hgb 11.6 g/dL (12.0-16.0) L 03/29/24 05:35
Hct 34.3 % (37.0-47.0) L 03/29/24 05:35
MCV 89.6 fL (81.0-99.0) 03/29/24 05:35
MCH 30.3 pg (27.0-31.0) 03/29/24 05:35
MCHC 33.8 g/dL (33.0-37.0) 03/29/24 05:35
RDW 13.2 % (11.5-14.5) 03/29/24 05:35
Plt Count 192 10^3/uL (130-400) 03/29/24 05:35
MPV 10.0 fL (7.4-10.4) 03/29/24 05:35
Abs Immat Gran (auto) 0.1 10^3/uL (0-0.05) H 03/29/24 05:35
Absolute Neuts (auto) 7.5 10^3/uL (1.4-6.5) H 03/29/24 05:35
Absolute Lymphs (auto) 2.3 10^3/uL (1.2-3.4) 03/29/24 05:35
Absolute Monos (auto) 0.8 10^3/uL (0.1-0.6) H 03/29/24 05:35
Absolute Eos (auto) 0.5 10^3/uL (0-0.7) 03/29/24 05:35
Absolute Basos (auto) 0.1 10^3/uL (0-0.2) 03/29/24 05:35
Immature Gran % 0.4 % (0-0.5) 03/29/24 05:35
Neutrophils % 67.0 % (42.2-75.2) 03/29/24 05:35
Lymphocytes % 20.3 % (20.5-51.1) L 03/29/24 05:35
Monocytes % 7.5 % (1.7-9.3) 03/29/24 05:35
Eosinophils % 4.2 % (0-6) 03/29/24 05:35
Basophils % 0.6 % (0-2) 03/29/24 05:35
Creatinine 0.7 mg/dL (0.6-1.0) 03/29/24 05:35
Vital Signs
Vital Signs
Temp Pulse Resp BP Pulse Ox
98.2 F 85 17 132/78 96
03/29/24 08:01 03/29/24 08:01 03/29/24 08:01 03/29/24 08:01 03/29/24 08:01
--- NOTE | 2024-03-29 15:26 | CM ---
Patient seen at bedside with physician and residents. Patient and grandson present. Patient lives with in a one story home with a walker and provides care supports for patient as needed. Patient has no current VN and
previously had been at [facility]. Patient PCP is Dr. Truong and they use [facility] in [place] for pharmacy needs. Patient for surgery later today and pending PT/OT assessment may need VN supports. CM will continue to follow for discharge planning needs.
Plan; home with VN vs SNF pending functional assessments.
[2024-03-29] MEDS: NSS 1000 IV (17:39)
--- NOTE | 2024-03-29 17:44 | PTCARENOTE ---
pt. sats decreasing on RA 88-89%, O2-2L placed on pt. sat 95%
--- NOTE | 2024-03-29 18:15 | PTCARENOTE ---
Pt received from the PACU via bed. Transport was w/o incident. Pt is drowsy, VSS, oral temp is 99.0. Left foot/leg with splint covered with NATALIIA Wrap, Pt can wiggle toes, positive DP, toes are warm. P instructed on plan of care, call marion is within
reach.
[2024-03-29] MEDS: REFRESH EYE DROPS (PF) BOTH EYES (18:43)
[2024-03-29] MEDS: TYLENOL 1000 MG PO (21:37)
[2024-03-29] MEDS: BENADRYL 50 MG PO (21:37)
[2024-03-29] MEDS: ELIQUIS 5 MG PO (21:37)
[2024-03-30] MEDS: VANCOCIN 200 IV (01:32)
[2024-03-30 03:29] VITALS: BP 105/62
[2024-03-30 05:06] LABS: Hematocrit 30.9 % (37.0-47.0); Hemoglobin 10.4 g/dL (12.0-16.0); Mean Corp Hgb Conc. 33.7 g/dL (33.0-37.0); Mean Corpuscular Hgb 29.9 pg (27.0-31.0); Mean Corpuscular Volume 88.8 fL (81.0-99.0); Mean Platelet Volume 9.7 fL (7.4-10.4); Platelet Count 166 10^3/uL (130-400); Red Blood Cell Count 3.48 10^6/uL (4.20-5.40); White Blood Cell Count 8.9 10^3/uL (4.8-10.8)
[2024-03-30 05:47] LABS: ALT (SGPT) 24 U/L (0-35); AST (SGOT) 34 U/L (14-36); Albumin 3.1 g/dl (3.5-5.0); Alkaline Phosphatase 99 U/L (38-126); Blood Urea Nitrogen 21 mg/dl (7-17); Calcium 10.5 mg/dl (8.4-10.2); Carbon Dioxide 23 mmol/L (22-30); Chloride 107 mmol/L (98-107); Estimated Creatinine Clearance 60 ml/min; Glucose 151 mg/dl (70-99); Sodium 137 mmol/L (135-145); Total Bilirubin 0.7 mg/dl (0.2-1.3); Total Protein 5.6 g/dl (6.3-8.2); eGFR > 60.00
[2024-03-30] MEDS: NSS 1000 IV (06:09)
--- NOTE | 2024-03-30 07:11 | W.PN.ONC2 ---
Today's Communication / Plan
-
open reduction internal fixation planned for later today. Her Eliquis has been on hold. 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
PLT & coags adequate. Heme cleared for surgery.
Impression
Impression
Pancreatic carcinoma with metastases to the lung
Chemotherapy atypical neuropathy with visual loss and decreased strength upper extremity greater than lower
Bimalleolar left ankle fracture
Hypertension
Electrolyte imbalance
History of DVT, on Eliquis
Plan
Plan
Apixaban on hold preop. 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
Platelets & coags for OR
Reschedule office visit to discuss alternate systemic chemotherapy
Unlikely to be a candidate for chemotherapy agents with neurotoxicity - consider liposomal irinotecan (Onivyde)
Subjective/Objective
Chief Complaint
ACS Heme Onc
Subjective
Feels good.
Vital Signs:
Vital Signs
Temp Pulse Resp BP Pulse Ox
97.9 F 71 14 105/62 94
03/30/24 03:29 03/30/24 03:29 03/30/24 03:29 03/30/24 03:29 03/30/24 03:29
Lab Results:
Laboratory Data
WBC 8.9 10^3/uL (4.8-10.8) 03/30/24 04:44
Hgb 10.4 g/dL (12.0-16.0) L 03/30/24 04:44
Plt Count 166 10^3/uL (130-400) 03/30/24 04:44
PT 15.4 Sec (11.4-14.6) H 03/28/24 13:56
INR 1.22 03/28/24 13:56
APTT 26.1 Sec (23.4-35.0) 03/28/24 13:56
eGFR > 60.00 03/30/24 04:44
Physical Exam
HEENT: No Jaundice
Cardiology: S1 and S2
Pulmonary: Clear
GI: Soft
--- NOTE | 2024-03-30 07:22 | W.PN.HOSP.TC ---
Addendum entered and electronically signed by Svetlana Goldman MD 03/30/24 17:08:
Patient seen and examined independently--agree with admission note set forth by Dr. Davila
GENERAL: well developed, well nourished, in no apparent distress
HEENT: NC/AT
HEART: regular rate and rhythm, +S1, +S2
LUNGS : clear to auscultation bilaterally
ABDOM: soft, nontender, nondistended, + bowel sounds
EXT: no cyanosis, clubbing, or edema-- left leg in splint post op
NEUROLOGIC: grossly intact
Mechanical fall (no prodromes of dizziness, etc) resulting in acute left Ankle fracture--Bimalleolar left ankle fracture confirmed on x-ray--Most likely due to chemotherapy induced neuropathy/weakness of lower extremities, cannot say with certainty
that osteoporosis played any role--reduced in ER and put in splint--apprec orthopedics, s/p OR 03/29--Pain control-- PT/OT after surgery recommending SNF--pt agreeable--first choice [facility]
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 Walker.
Essential hypertension--Hold hydrochlorothiazide in perioperative period so as not to precipitate hyponatremia--can restart
Hypercholesteremia--Continue atorvastatin.
Hypomagnesemia-- likely due to chemo/poor oral intake--Repeated--Follow with repeat lab
DVT prophylaxis--Hold Eliquis for tomorrow.
CODE STATUS: Full code
anticipate d/c tomorrow to SNF
Original Note:
Today's Communication/Plan
-
LLE splint, nonweightbearing until 2 weeks postop
PT/OT
Continue Eliquis
Outpatient oncology follow-up
Dispo planning to SNF
Assessment / Plan
Assessment / Plan
Assessment: This is a 78-year-old female with past medical history of hypertension, DVT (on Eliquis), multiple lung nodules, pancreatic cancer, right breast cancer(on chemotherapy), chronic neuropathy who presented to ED due to fall at home and
left ankle pain with swelling. Imaging reports bimalleolar fractures with mild tibiotalar subluxation.
Condition prior to admission:
Essential hypertension
Hypercholesterolemia
Medication induced neuropathy
Right lumpectomy
Right shoulder replacement
Impression:
Left ankle fracture
Splinted
PLAN:
Ankle fracture
-Bimalleolar left ankle fracture confirmed on x-ray from low level mechanical fall. Most likely due to chemotherapy induced neuropathy/weakness of lower extremities.
-Open Reduction with internal fixation surgery performed 03/30/2024.
-Maintain splint for 2 weeks postop with nonweightbearing to lower left extremity per Ortho.
-Pain controlled, will discharge on current regimen.
-Continue Eliquis.
-Orthopedic following.
-Orthopedic surgical appreciated.
-PT advised SNF discharge, patient agreeable.
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 Now presenting with atypical neuropathy of LE > UE and vision loss due to chemotherapy.
-TSH, B12, folate WNL.
-Chemotherapy stopped 5 weeks ago per patient, would not likely benefit from another chemotherapy.
-Oncology consult, patient follows with Dr. Walker.
-Follow-up outpatient to discuss alternate chemotherapy, liposomal irinotecan (onivyde) considered per oncology.
-Oncology recs appreciated.
Essential hypertension
-Continue hydrochlorothiazide.
Mild anemia with mild leukocytosis
-Hb 11.6, WBC 11.1 with normal platelet count
-Leukocytosis likely reactive.
-Monitor CBC
Hypercholesteremia
-Continue atorvastatin.
Hypomagnesemia
-Repeated.
DVT prophylaxis
-Eliquis
CODE STATUS: Full code
Anticipated Discharge: 24 - 48 hours
Subjective/Interval History
-
Date of Service: March 30, 2024
Objective Data
-
Labs:
Laboratory Results
03/30/24
04:44
WBC 8.9
Hgb 10.4 L
Hct 30.9 L
Plt Count 166
Sodium 137
Potassium 4.0
Chloride 107
Carbon Dioxide 23
BUN 21 H
Creatinine 0.6
Glucose 151 H
Calcium 10.5 H
Total Bilirubin 0.7
AST 34
ALT 24
Alkaline Phosphatase 99
Vital Signs:
T. Max
03/29/24
23:31
Temp 97.6 F
Vital Signs
Temp Pulse Resp BP Pulse Ox
97.9 F 71 14 105/62 94
03/30/24 03:29 03/30/24 03:29 03/30/24 03:29 03/30/24 03:29 03/30/24 03:29
I&O
03/29/24 03/30/24 03/31/24
06:59 06:59 06:59
Intake Total 480 / 480 1340 / 1340
Output Total 300 / 300
Balance 180 / 180 1340 / 1340
Review of Systems
-
History Source: Patient
All other systems: Not reviewed unless documented
Constitutional: Reports No Symptoms; Denies Fever or Chills
EENT: Reports No Symptoms Reported
Respiratory: Reports No Symptoms; Denies Cough
Cardiac: Reports No Symptoms; Denies Chest Pain
Abdomen/GI: Reports No Symptoms; Denies Abdominal Pain, Nausea or Vomiting
Genitourinary: Reports No Symptoms
Musculoskeletal: Reports Other (Left bimalleolar ankle fracture)
Skin: Reports No Symptoms
Neuro: Reports Weakness (Right lower extremity> left)
Endocrine: Reports No Symptoms
Physical Exam
-
General: No Apparent Distress, Comfortable and Conversant
HEENT: Normocephalic, Atraumatic and Moist Mucous Membranes
Respiratory: Clear to Auscultation; Negative Wheezes, Crackles or Non Labored Respirations
Cardiac: Regular Rhythm and S1/S2
GI: Soft, Nontender, Nondistended and Normal Bowel Sounds
Musculoskeletal: No Clubbing and Other (Left leg splint); Negative No Edema
Skin: Warm
Neuro: Awake, Alert, Oriented and AO x 3
Psych: Calm and Intact Judgement/Insight
Data Reviewed
-
Diagnostic Radiology: Report Reviewed by me and Discussed with Physician
Labs: Labs Reviewed by me and Discussed with Physician
Old Records: Reviewed
[2024-03-30 07:23] VITALS: BP 123/62
--- NOTE | 2024-03-30 08:17 | W.PN.ORTHO ---
Today's Communication / Plan
-
78-year-old female postop day 1 left ankle ORIF
-Nonweightbearing to lower left extremity.
-Splint in place maintained until 2 weeks postop.
- May resume baseline anticoagulation of Eliquis for DVT prophylaxis
-PT/OT/discharge planning
-Pain controlled with current regimen
-Diet per primary
-Orthopedic surgical continue to follow
Assessment
.
Distal Motor Intact: Yes
Dressing:
Clean, dry and intact.
Plan
.
Surgery / Date: Left ankle ORIF 29 March 2024 w/ Dr. Mccormick
Activity:
Out of bed.
PT/OT
Subjective
.
.:
Patient resting comfortably.
Vital Signs and Labs
.
Vital Signs and Labs:
Lab Results
03/30/24 04:44
03/30/24 04:44
Temp Pulse Resp BP Pulse Ox
97.9 F 78 16 123/62 93
03/30/24 07:23 03/30/24 07:23 03/30/24 07:23 03/30/24 07:23 03/30/24 07:23
PT 15.4 Sec (11.4-14.6) H 03/28/24 13:56
INR 1.22 03/28/24 13:56
[2024-03-30] MEDS: COLACE 100 MG PO (08:28)
[2024-03-30] MEDS: ROXICODONE 5 MG PO ×2 (08:28→14:43)
[2024-03-30] MEDS: VITAMIN D3 (cholecalciferol) 25 MCG PO (08:29)
[2024-03-30] MEDS: ORETIC 25 MG PO (08:29)
[2024-03-30] MEDS: LIPITOR 10 MG PO (08:29)
[2024-03-30] MEDS: REFRESH EYE DROPS (PF) 1 DROPS BOTH EYES ×4 (08:29→21:30)
[2024-03-30] MEDS: ELIQUIS 5 MG PO ×2 (08:30→20:42)
[2024-03-30] MEDS: KCL 20 MEQ PO (08:30)
[2024-03-30 09:45] VITALS: BP 126/68; PULSE 87; O2SAT 96
--- NOTE | 2024-03-30 12:39 | PN.CDI ---
CDI
- -
CDI:
Physician Documentation Request
Admit Date: 03/28/24 17:14
Dear Doctor Jones,
Please review the following and provide your response in the progress notes.
Clinical Indicators:
Pt admitted with Bimalleolar left ankle fracture s/p ORIF 03/29/Pt also with pancreatic cancer with lung mets on chemotherapy
Documented per ED, ' Patient presents to ED secondary to left ankle pain with swelling, when she lost balance and fell down at home this morning. Patient who has been utilizing walker secondary to lower extremity weakness from deconditioning,
reports losing balance and falling to her right side.'
Documented in the record, ' Mechanical fall (no prodromes of dizziness, etc) resulting in acute left Ankle fracture...'
Pt is on vitamin D3 per home meds
Please provide the suspected Etiology of the documented Bimalleolar left ankle fracture:
Multifactorial due to low level mechanical fall / Age related Osteoporosis
Due to low level fall only
Other (please Specify)
Use of terms such as suspected, likely, concern for, or probable (associated with a specific diagnosis that is being evaluated, monitored, or treated as if it exists) are acceptable and can be coded in the inpatient setting, when documented at the
time of discharge.
Thank you,
Nati Strong RN
CDI Specialist
[facility]
Please use your independent medical judgment in providing your response.
--- NOTE | 2024-03-30 14:27 | W.DCSUMMARY ---
Addendum entered and electronically signed by Svetlana Goldman MD 03/31/24 14:47:
Fully read and agree with summary as set forth by Dr. Davila.
Nothing more to add.
Original Note:
Discharge Summary
Discharge Data
Date of Admission: 03/28/24
Date of Discharge: 03/31/24
-
Pending Results: No
Hospital Course
Discharging Physician : MD Shayan Aaron MD.
Disposition : [facility]
Primary care physician : Sterlnig Truong MD
Principal Discharge diagnosis : Left bimalleolar ankle fracture
Chronic Discharge diagnosis : Hypertension, DVT, lung cancer, pancreatic cancer, right breast cancer chronic neuropathy.
Hospital Course : 78-year-old female with past medical history of hypertension, DVT (on Eliquis), multiple lung nodules, pancreatic cancer, right breast cancer(on chemotherapy), chronic neuropathy who presented to ED after a low level mechanical
fall at home and left ankle pain with swelling. She reported that her leg caught on the rug while she was walking with her walker and she tripped and fell. She reports past medical history of breast cancer for which she received chemotherapy that
has now affected her vision and cause neuropathy of both upper and lower extremities. She reports that her right leg is weaker than the left. Even though the chemotherapy has been discontinued about 5 weeks ago, she still has residual neuropathy
from the medications.
While in the ED a left bimalleolar ankle fractures was discovered on ankle x-ray. The left leg was splinted and patient was admitted for further evaluation and management.
Patient was seen in consultation with orthopedic surgery who performed an open reduction internal fixation of the left ankle (Dr. Mccormick). Patient tolerated the surgery and was observed in the hospital prior to discharge. Patient was also
evaluated by physical therapy and Occupational Therapy and discharged to SNF was recommended. Patient is agreeable to SNF disposition, vitals are stable, labs are within normal limits and is therefore stable for discharge at this moment. Patient
is instructed not to bear weight on the left lower extremity and to keep the splint in place for at least 2 weeks postop. Patient is also advised to follow-up with her primary care physician, oncology, and orthopedic surgeon in less than 1 week
postdischarge.
Important imaging findings :
1. There is bony demineralization. There is a comminuted fracture of the left distal fibular metadiaphysis. There is approximate 4 mm override. There is no significant angulation. The main fracture line measures approximately 3 mm.
2. There is a transverse fracture through the left medial malleolus. This fracture line measures approximately 2 mm in thickness.
3. There is moderate soft tissue swelling over the lateral malleolus. There is mild soft tissue edema of the medial malleolus. There is mild tibiotalar subluxation laterally by approximately 1 mm.
4. No additional acute fractures are noted. There calcaneal spurs.
Discharge Plan
-
Patient Disposition: Fdc/SNF
Discharge Diagnosis/Procedures: Bimalleolar left ankle fracture, DVT lung cancer pancreatic cancer, right breast cancer chronic neuropathy, essential hypertension, hyperlipidemia.
Condition: Good
Diet: Low Cholesterol
Activity: With assistance, As tolerated, Do not bear weight L leg and With Walker
Driving Restrictions: Not until seen by your Dr
Bathing Restrictions: OK to Shower
Other Services: PT and OT
Referrals:
Sterling Truong MD [Family Provider] - in less than 1 week
Deja Baron MD [Active] - in less than 1 week
Jose Mccormick MD [Active] - in less than 1 week
Additional Discharge Medication Instructions: Stat atorvastatin 10 mg tablet by mouth once daily. Start oxycodone 5 mg tablet by mouth every 4 hours as needed for moderate pain, 10 mg tablet by mouth every 4 hours as needed for severe pain, Eliquis
5 mg tablet by mouth twice daily, docusate sodium 100 mg capsule by mouth once daily, Tylenol 1000 mg extra strength by mouth every 6 hours as needed. Cyclosporine eyedrops 1 drop in both eyes twice daily as needed.
Prescriptions:
New
atorvastatin 10 mg Tablet
10 mg PO DAILY Qty: 0 0RF
docusate sodium 100 mg Capsule
100 mg PO DAILY Qty: 0 0RF
cyclosporine 0.09 % Dropperette
1 drp BOTH EYES Q12H Qty: 0 0RF
Eliquis 5 mg Tablet
5 mg PO BID Qty: 0 0RF
acetaminophen [Tylenol Extra Strength] 500 mg Tablet
1,000 mg PO Q6HPRN PRN (Reason: Left ankle pain) Qty: 0 0RF
oxycodone 5 mg tablet
5 mg PO Q4H PRN (Reason: moderate pain) Qty: 10 0RF
oxycodone 10 mg tablet
10 mg PO Q4H PRN (Reason: severe pain) Qty: 10 0RF
Continued
atorvastatin 10 MG tablet
10 mg PO DAILY
docusate sodium [Colace] 100 mg Capsule
100 mg PO DAILY
diphenhydramine-acetaminophen [Tylenol PM Extra Strength] 25-500 mg Tablet
2 tab PO HS
cholecalciferol (vitamin D3) [Vitamin D3] 25 mcg (1,000 unit) Tablet
25 mcg PO DAILY
Refresh Optive 0.5-0.9 % Drops
1 drp BOTH EYES 5/D
Eliquis 5 mg Tablet
5 mg PO BID
potassium chloride 20 mEq Tablet Extended Release
20 meq PO DAILY
Cequa 0.09 % Dropperette
1 drp BOTH EYES Q12H
Patient Comments:
03/28/24-patient had free samples from eye md
Inveltys 1 % Drops,Suspension
1 drp BOTH EYES BID
hydrochlorothiazide 25 MG tablet
25 mg PO DAILY Qty: 1 0RF
Discharge Orders:
Discharge Patient (As Directed); Ordered 03/31/24
Ordered By: Shayan Davila
Discharge Date and Time
Print Language: SAMMARINESE
[2024-03-30] MEDS: REFRESH EYE DROPS (PF) BOTH EYES (14:34)
--- NOTE | 2024-03-30 14:39 | CM ---
Addendum entered by Brittany Elena 03/30/24 16:39:
[facility] is able to accept patient and Physician to accept patient at SNF would be Jairo Vick. CM will start auth process.
Addendum entered by Brittany Elena 03/30/24 16:34:
[facility] still considering patient, [facility] is the first choice. [facility] for patient and [facility] is saying first available bed would be next week. CM will continue to follow for discharge planning needs.
Plan; SNF awaiting confirmation of a bed. Will need auth.
Original Note:
Patient seen at bedside with physician and residents. Patient [facility] referral to [facility]. CM sent referrals and await response. PT/OT recommending SNF due to surgery. CM will continue to follow for discharge planning needs.
Plan; SNF
[2024-03-30 15:30] VITALS: BP 138/63
[2024-03-30] MEDS: BENADRYL 50 MG PO (21:29)
[2024-03-30] MEDS: TYLENOL 1000 MG PO (21:30)
[2024-03-30 23:00] VITALS: BP 132/60
[2024-03-31 07:41] VITALS: BP 133/64
--- NOTE | 2024-03-31 07:41 | W.PN.HOSP.TC ---
Addendum entered and electronically signed by Svetlana Goldman MD 03/31/24 19:24:
Patient seen and examined independently--agree with admission note set forth by Dr. Davila
GENERAL: well developed, well nourished, in no apparent distress
HEENT: NC/AT
HEART: regular rate and rhythm, +S1, +S2
LUNGS : clear to auscultation bilaterally
ABDOM: soft, nontender, nondistended, + bowel sounds
EXT: no cyanosis, clubbing, or edema-- left leg in splint post op
NEUROLOGIC: grossly intact
Mechanical fall (no prodromes of dizziness, etc) resulting in acute left Ankle fracture--Bimalleolar left ankle fracture confirmed on x-ray--Most likely due to chemotherapy induced neuropathy/weakness of lower extremities, cannot say with certainty
that osteoporosis played any role--reduced in ER and put in splint--apprec orthopedics, s/p OR 03/29--Pain control-- PT/OT after surgery recommending SNF--pt agreeable--d/c to [facility]
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
Essential hypertension--Hold hydrochlorothiazide in perioperative period so as not to precipitate hyponatremia--can restart
Hypercholesteremia--Continue atorvastatin.
Hypomagnesemia-- likely due to chemo/poor oral intake--Repeated--Follow with repeat lab
DVT prophylaxis--Restart Eliquis
CODE STATUS: Full code
Original Note:
Today's Communication/Plan
-
Maintain splint, strict nonweightbearing, ice and elevation LLE
Continue Eliquis
Dispo [facility]
Assessment / Plan
Assessment / Plan
Assessment: This is a 78-year-old female with past medical history of hypertension, DVT (on Eliquis), multiple lung nodules, pancreatic cancer, right breast cancer(on chemotherapy), chronic neuropathy who presented to ED due to fall at home and
left ankle pain with swelling. Imaging reports bimalleolar fractures with mild tibiotalar subluxation.
Condition prior to admission:
Essential hypertension
Hypercholesterolemia
Medication induced neuropathy
Right lumpectomy
Right shoulder replacement
Impression:
Left ankle fracture
Splinted
PLAN:
Ankle fracture
-Bimalleolar left ankle fracture confirmed on x-ray from low level mechanical fall. Most likely due to chemotherapy induced neuropathy/weakness of lower extremities.
-S/p open Reduction with internal fixation surgery POD #2 (Dr. Mccormick).
-Maintain splint for 2 weeks postop with strict nonweightbearing, ice and elevation to lower left extremity per Ortho.
-Orthopedic surgical appreciated.
-Outpatient Ortho follow-up in 2 weeks.
-Dispo [facility].
-Continue PT/OT.
-Pain controlled, will discharge on current regimen.
-Continue Eliquis.
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
-Most likely chemotherapy induced,TSH, B12, folate WNL.
-Chemotherapy stopped 5 weeks ago per patient due to eye problems, would not likely benefit from another chemotherapy.
-Patient follows with Dr. Walker.
-Follow-up outpatient to discuss alternate chemotherapy, liposomal irinotecan (onivyde) considered per oncology.
-Oncology appreciated.
Essential hypertension
-Continue hydrochlorothiazide.
Mild anemia with mild leukocytosis
-Hb 11.6, WBC 11.1 with normal platelet count
-Leukocytosis likely reactive.
-Monitor CBC
Hypercholesteremia
-Continue atorvastatin.
Hypomagnesemia
-Repeated.
DVT prophylaxis
-Eliquis
CODE STATUS: Full code
Anticipated Discharge: Today
Subjective/Interval History
-
Date of Service: March 31, 2024
Objective Data
-
Vital Signs:
T MAX 24 HRS
03/30/24
23:00
Temp 98.2 F
Vital Signs
Temp Pulse Resp BP Pulse Ox
98.2 F 83 16 132/60 95
03/30/24 23:00 03/30/24 23:00 03/30/24 23:00 03/30/24 23:00 03/30/24 23:00
I&O
03/30/24 03/31/24 04/01/24
06:59 06:59 06:59
Intake Total 1340 / 1340 480 / 480
Balance 1340 / 1340 480 / 480
Review of Systems
-
History Source: Patient
All other systems: Not reviewed unless documented
Constitutional: Reports No Symptoms; Denies Fever or Chills
EENT: Reports No Symptoms Reported
Respiratory: Reports No Symptoms; Denies Cough
Cardiac: Reports No Symptoms; Denies Chest Pain
Abdomen/GI: Reports No Symptoms; Denies Abdominal Pain, Nausea or Vomiting
Genitourinary: Reports No Symptoms
Musculoskeletal: Reports Other (Left bimalleolar ankle fracture)
Skin: Reports No Symptoms
Neuro: Reports Weakness (Right lower extremity> left)
Endocrine: Reports No Symptoms
Physical Exam
-
General: No Apparent Distress, Comfortable and Conversant
HEENT: Normocephalic, Atraumatic and Moist Mucous Membranes
Respiratory: Clear to Auscultation; Negative Wheezes, Crackles or Non Labored Respirations
Cardiac: Regular Rhythm and S1/S2
GI: Soft, Nontender, Nondistended and Normal Bowel Sounds
Musculoskeletal: No Clubbing and Other (Left leg splint); Negative No Edema
Skin: Warm
Neuro: Awake, Alert, Oriented and AO x 3
Psych: Calm and Intact Judgement/Insight
Data Reviewed
-
Diagnostic Radiology: Report Reviewed by me and Discussed with Physician
Labs: Labs Reviewed by me and Discussed with Physician
Old Records: Reviewed
[2024-03-31 07:50] LABS: Magnesium 1.3 mg/dl (1.6-2.3)
[2024-03-31] MEDS: COLACE 100 MG PO (07:56)
[2024-03-31] MEDS: KCL 20 MEQ PO (07:56)
[2024-03-31] MEDS: LIPITOR 10 MG PO (07:57)
[2024-03-31] MEDS: ELIQUIS 5 MG PO (07:57)
[2024-03-31] MEDS: VITAMIN D3 (cholecalciferol) 25 MCG PO (07:57)
[2024-03-31] MEDS: REFRESH EYE DROPS (PF) 1 DROPS BOTH EYES ×2 (07:57→11:32)
[2024-03-31] MEDS: ORETIC 25 MG PO (07:57)
[2024-03-31 08:13] LABS: % Basophils 0.6 % (0-2); % Eosinophils 2.4 % (0-6); % Immature Granulocytes 0.2 % (0-0.5); % Lymphocytes 29.9 % (20.5-51.1); % Monocytes 6.4 % (1.7-9.3); % Neutrophils 60.5 % (42.2-75.2); Absolute Basophils 0.1 10^3/uL (0-0.2); Absolute Eosinophils 0.2 10^3/uL (0-0.7); Absolute Lymphocytes 2.6 10^3/uL (1.2-3.4); Absolute Monocytes 0.6 10^3/uL (0.1-0.6); Absolute Neutrophils 5.3 10^3/uL (1.4-6.5); Hematocrit 30.4 % (37.0-47.0); Hemoglobin 9.9 g/dL (12.0-16.0); Mean Corp Hgb Conc. 32.6 g/dL (33.0-37.0); Mean Corpuscular Hgb 30.1 pg (27.0-31.0); Mean Corpuscular Volume 92.4 fL (81.0-99.0); Mean Platelet Volume 9.9 fL (7.4-10.4); Nucleated Red Blood Cells % 0 %; Platelet Count 155 10^3/uL (130-400); Red Blood Cell Count 3.29 10^6/uL (4.20-5.40); White Blood Cell Count 8.8 10^3/uL (4.8-10.8)
[2024-03-31 09:00] LABS: Blood Urea Nitrogen 19 mg/dl (7-17); Calcium 10.1 mg/dl (8.4-10.2); Carbon Dioxide 29 mmol/L (22-30); Chloride 104 mmol/L (98-107); Estimated Creatinine Clearance 60 ml/min; Glucose 100 mg/dl (70-99); Potassium 3.6 mmol/L (3.5-5.1); Sodium 137 mmol/L (135-145); eGFR > 60.00
--- NOTE | 2024-03-31 11:25 | CM ---
met with patient at bedside.sshe is stable for dc to [facility].i called and spoke with [facility] supervisor who does have a bed for pt today.auth obtained judy from [place] [id number] auth# [id number] starting 03/31 with [facility] 04/04.call to
[phone].auth info given to devon at facility.ambulance transport being arranged.patient signed imm letter.attending notified.
report number :[phone] and fax: [phone].
--- NOTE | 2024-03-31 11:31 | W.PN.ORTHO ---
Today's Communication / Plan
-
Appreciate the primary team, continue Tx
Dispo [facility], appreciate CM
Strict NWB LLE, continue with PT/OT
Dressings/splint to remain 2 weeks until follow-up
Eliquis for DVT ppx
Ice and elevation toleft ankle
Outpatient Ortho follow-up 2 weeks for xrays/staple removal
Assessment
.
Distal Motor Intact: Yes
Dressing:
Clean, dry and intact. Dressings/splint in place
Assessment:
POD#2 Left ankle ORIF
Overall doing/feeling well
DNVI LLE
Plan
.
Surgery / Date: Left ankle ORIF 29 March 2024 w/ Dr. Mccormick
DVT Prophylaxis: Other (Eliquis)
Activity:
Out of bed. strict NWB LLE
PT/OT
Discharge Plan: SNF ([facility])
Subjective
.
.:
Patient resting comfortably in bed. No complaints
Vital Signs and Labs
.
Vital Signs and Labs:
Lab Results
03/31/24 07:56
03/31/24 07:56
Temp Pulse Resp BP Pulse Ox
98.7 F 77 14 133/64 94
03/31/24 07:41 03/31/24 07:41 03/31/24 07:41 03/31/24 07:41 03/31/24 07:41
PT 15.4 Sec (11.4-14.6) H 03/28/24 13:56
INR 1.22 03/28/24 13:56
[2024-03-31 11:44] VITALS: BP 127/68
[2024-03-31] MEDS: REFRESH EYE DROPS (PF) BOTH EYES (15:07)
[2024-03-31 15:27] VITALS: BP 130/68
== END 2024-03-31 17:02 | DRG 493 ==
LOC: 2 SOUTH 17:14
PROVIDERS: Student in an Organized Health Care Education/Training Program; ADMITTING PHYSICIAN Internal Medicine; CONSULT PHYSICIAN Orthopaedic Surgery Hand Surgery; EMERGENCY PHYSICIAN Emergency Medicine; FAMILY PHYSICIAN Family Medicine; OTHER PHYSICIAN Internal Medicine Hematology & Oncology
PROC: 0QSK04Z Reposition Left Fibula with Internal Fixation Device, Open Approach (ICD-10-PCS; 2024-03-29)
PROC: 0QSH04Z Reposition Left Tibia with Internal Fixation Device, Open Approach (ICD-10-PCS; 2024-03-29)
DX: S82.842A Displaced bimalleolar fracture of left lower leg, initial encounter for closed fracture (principal); C25.9 Malignant neoplasm of pancreas, unspecified; C78.00 Secondary malignant neoplasm of unspecified lung; I10 Essential (primary) hypertension; G62.0 Drug-induced polyneuropathy; K86.81 Exocrine pancreatic insufficiency; E87.8 Other disorders of electrolyte and fluid balance, not elsewhere classified; T45.1X5A Adverse effect of antineoplastic and immunosuppressive drugs, initial encounter; W01.0XXA Fall on same level from slipping, tripping and stumbling without subsequent striking against object, initial encounter; Y92.009 Unspecified place in unspecified non-institutional (private) residence as the place of occurrence of the external cause; E78.00 Pure hypercholesterolemia, unspecified; E83.42 Hypomagnesemia; E87.6 Hypokalemia; M19.90 Unspecified osteoarthritis, unspecified site; Z96.611 Presence of right artificial shoulder joint; Z79.899 Other long term (current) drug therapy; Z92.21 Personal history of antineoplastic chemotherapy; Z85.3 Personal history of malignant neoplasm of breast; Z86.718 Personal history of other venous thrombosis and embolism; Z87.891 Personal history of nicotine dependence; Z88.0 Allergy status to penicillin
CPT/HCPCS: 29515; 73610; 80048; 80053; 82607; 82746; 83735; 84443; 85025; 85027; 85610; 85730; 86850; 86900; 86901; 93005; 96365; 96366; 97163; 97167; 99285; C1713; C1769

== ENCOUNTER → 2024-04-09 11:31 | Outpatient (REF) | payer OTHER, SELFPAY ==
[2024-04-09 12:11] LABS: % Basophils 0.8 % (0-2); % Eosinophils 10.3 % (0-6); % Immature Granulocytes 0.3 % (0-0.5); % Lymphocytes 31.5 % (20.5-51.1); % Monocytes 6.7 % (1.7-9.3); % Neutrophils 50.4 % (42.2-75.2); Absolute Basophils 0.1 10^3/uL (0-0.2); Absolute Eosinophils 0.8 10^3/uL (0-0.7); Absolute Lymphocytes 2.3 10^3/uL (1.2-3.4); Absolute Monocytes 0.5 10^3/uL (0.1-0.6); Absolute Neutrophils 3.7 10^3/uL (1.4-6.5); Hematocrit 34.8 % (37.0-47.0); Hemoglobin 11.2 g/dL (12.0-16.0); Mean Corp Hgb Conc. 32.2 g/dL (33.0-37.0); Mean Corpuscular Hgb 29.2 pg (27.0-31.0); Mean Corpuscular Volume 90.9 fL (81.0-99.0); Mean Platelet Volume 10.1 fL (7.4-10.4); Nucleated Red Blood Cells % 0 %; Platelet Count 241 10^3/uL (130-400); Red Blood Cell Count 3.83 10^6/uL (4.20-5.40); Red Cell Dist. Width 13.1 % (11.5-14.5); White Blood Cell Count 7.3 10^3/uL (4.8-10.8)
[2024-04-09 12:21] LABS: Blood Urea Nitrogen 13 mg/dl (7-17); Calcium 10.5 mg/dl (8.4-10.2); Carbon Dioxide 29 mmol/L (22-30); Chloride 101 mmol/L (98-107); Glucose 108 mg/dl (70-99); Potassium 2.9 mmol/L (3.5-5.1); Sodium 139 mmol/L (135-145); eGFR > 60.00
== END ==
LOC: OLABP 11:31
PROVIDERS: ATTENDING PHYSICIAN Family Medicine
DX: I10 Essential (primary) hypertension (principal); G62.0 Drug-induced polyneuropathy; C25.9 Malignant neoplasm of pancreas, unspecified; E87.6 Hypokalemia; E83.42 Hypomagnesemia; C78.00 Secondary malignant neoplasm of unspecified lung; E78.5 Hyperlipidemia, unspecified
CPT/HCPCS: 36415; 80048; 85025

== ENCOUNTER → 2024-04-11 11:50 | Outpatient (REF) | payer OTHER, SELFPAY ==
[2024-04-11 13:41] LABS: Blood Urea Nitrogen 13 mg/dl (7-17); Calcium 10.2 mg/dl (8.4-10.2); Carbon Dioxide 33 mmol/L (22-30); Chloride 100 mmol/L (98-107); Glucose 95 mg/dl (70-99); Potassium 3.1 mmol/L (3.5-5.1); Sodium 137 mmol/L (135-145); eGFR > 60.00
== END ==
LOC: OLABP 11:50
PROVIDERS: ATTENDING PHYSICIAN Family Medicine
DX: I10 Essential (primary) hypertension (principal); G62.0 Drug-induced polyneuropathy; C25.9 Malignant neoplasm of pancreas, unspecified; E87.6 Hypokalemia; E83.42 Hypomagnesemia; C78.00 Secondary malignant neoplasm of unspecified lung; E78.5 Hyperlipidemia, unspecified
CPT/HCPCS: 36415; 80048

== ENCOUNTER → 2024-04-13 07:57 | Outpatient (REF) | payer OTHER, SELFPAY ==
[2024-04-13 08:48] LABS: Blood Urea Nitrogen 12 mg/dl (7-17); Calcium 10.2 mg/dl (8.4-10.2); Carbon Dioxide 32 mmol/L (22-30); Chloride 102 mmol/L (98-107); Glucose 101 mg/dl (70-99); Potassium 3.7 mmol/L (3.5-5.1); Sodium 138 mmol/L (135-145); eGFR > 60.00
== END ==
LOC: OLABP 07:57
PROVIDERS: ATTENDING PHYSICIAN Family Medicine
DX: I10 Essential (primary) hypertension (principal); G62.0 Drug-induced polyneuropathy; C25.9 Malignant neoplasm of pancreas, unspecified; E87.6 Hypokalemia; E83.42 Hypomagnesemia; C78.00 Secondary malignant neoplasm of unspecified lung; E78.5 Hyperlipidemia, unspecified
CPT/HCPCS: 36415; 80048

== ENCOUNTER → 2024-05-28 10:17 | Outpatient (REF) | payer OTHER, SELFPAY | LOC: RAD 10:17 | PROVIDERS: ATTENDING PHYSICIAN Internal Medicine Hematology & Oncology; FAMILY PHYSICIAN Family Medicine | DX: C50.211 Malignant neoplasm of upper-inner quadrant of right female breast (principal); C34.2 Malignant neoplasm of middle lobe, bronchus or lung; D37.8 Neoplasm of uncertain behavior of other specified digestive organs; C78.02 Secondary malignant neoplasm of left lung; C78.01 Secondary malignant neoplasm of right lung; C25.1 Malignant neoplasm of body of pancreas; E87.6 Hypokalemia | CPT/HCPCS: 71260; 74177; Q9967 ==